=== PATIENT | male | born 1995 | race African-American/Black ===

== ENCOUNTER 2016-12-12 06:09 | Emergency (ER) | payer BC ==
[~2016-12-12] VITALS: Ht 188 cm; Wt 124.0 kg
[2016-12-12 06:13] VITALS: TEMP 37.2; Ht 188 cm; Wt 124.0 kg
[2016-12-12] MEDS ORDERED: AMOXICILLIN/CLAVULANATE TAB 875 MG TAB PO ONE (07:30)
[2016-12-12] MEDS ORDERED: DEXAMETHASONE SOD INJ 10 MG/ML VIAL IM ONE (07:30)
[2016-12-12 07:51] VITALS: BP 158/74; PULSE 99; O2SAT 99
--- NOTE | 2016-12-12 08:52 | EMERGENCY ROOM VISIT NOTE ---
History Report prepared by Prince: Margarita Duran Under the Supervision of: Dr. Eleazar Weems D.O. First contact with patient: 06:53 Chief Complaint: THROAT PAIN/INJURY Stated Complaint: THROAT SWELLING History of Present Illness The patient is a 21 year old male who presents to the Emergency Room with complaints of a persistent swollen throat starting this morning. He woke up this morning to a swollen throat. He has been having flu symptoms for the past week. He had fever and sore throat. He had a strep test 1 week ago which was negative. The swelling began this morning. He had difficulty swallowing. He denies snoring in his sleep. He has not been on antibiotics recently. Source of History: patient Onset: this morning Position: throat Quality: other (swelling) Associated Symptoms: + fevers, + sorethroat Note: Pt reports difficulty swallowing. Review of Systems See HPI for pertinent positives & negatives. A total of 10 systems reviewed and were otherwise negative. Family History No pertinent family history stated. Social History Smoking Status: Never Smoker Marital Status: single Occupation Status: employed Current/Historical Medications No Active Prescriptions or Reported Meds Allergies Coded Allergies: Gemfibrozil (Verified Allergy, Unknown, UNKNOWN, 12/12/16) Physical Exam Vital Signs Date Time Temp Pulse Resp B/P Pulse Ox O2 Delivery O2 Flow Rate FiO2 12/12/16 07:51 99 16 158/74 99 12/12/16 06:36 Room Air 12/12/16 06:13 37.2 107 16 160/86 98 Room Air Physical Exam CONSTITUTIONAL/VITAL SIGNS: Reviewed / noted above. GENERAL: Non-toxic in appearance. INTEGUMENTARY: Warm, dry, and [place]. HEAD: Normocephalic. EYES: without scleral icterus or trauma. ENT/OROPHARYNX: Uvular edema and bilateral peritonsillar edema without exudate or asymmetry. No evidence of abscess. He does have trismus and hot potato voice and is spitting out saliva. LYMPHADENOPATHY/NECK: Is supple without lymphadenopathy or meningismus. RESPIRATORY: Lungs clear and equal. CARDIOVASCULAR: Regular rate and rhythm. GI/ABDOMEN: Soft and nontender. No organomegaly or pulsatile mass. No rebound or guarding. Normal bowel sounds. EXTREMITIES: Warm and well perfused. BACK: No CVA tenderness. NEUROLOGICAL: Intact without focal deficits. PSYCHIATRIC: normal affect. MUSCULOSKELETAL: Normally developed with good muscle tone. Medical Decision & Procedures Medications Administered Medications (Trade) Dose Ordered Sig/Adonay Route Start Time Stop Time Status Last Admin Dose Admin Dexamethasone Sodium Phosphate (Decadron Inj) 10 mg NOW ONCE IM 12/12/16 07:30 12/12/16 07:31 DC 12/12/16 07:50 10 MG Amoxicillin/ Clavulanate Potassium (Augmentin Tab) 875 mg NOW ONCE PO 12/12/16 07:30 12/12/16 07:31 DC 12/12/16 07:50 875 MG ED Course 0713: Previous medical records were reviewed. The patient was evaluated in room B4B. A complete history and physical examination was performed. 0725: I discussed the patient's case with FADY Sandhu ENT from Dr. Krause's office. She agrees to seeing the patient in the office today. 0728: On reevaluation, the patient is resting comfortably. I discussed the results and findings with the patient. He verbalized agreement of the treatment plan. He was discharged home. 0730: Augmentin Tab 875 mg PO, Decadron Inj 10 mg IM. Medical Decision Differential includes viral illness, influenza, streptococcal pharyngitis, meningitis, pneumonia, sinusitis, UTI, pyelonephritis, otitis media. This is a 21-year-old male who presents to the ED with a chief complaint of a sore throat. The patient states that his symptoms started this morning. He has difficulty somewhat with his saliva and spitting it out although he states that he can take pills. The patient states that he has had some flulike illness in the past week and had a negative strep test about a week ago. The patient's exam reveals a hot potato voice as well as some trismus. There is peritonsillar and uvular edema without evidence of obvious abscess. There is no exudate. There is no obvious anterior lymphadenopathy on exam. The patient does spit out his saliva while he is in the ED. He was able to take by mouth Augmentin and was given Decadron IM. Because of his trismus and hot potato voice, this raised the concern for peritonsillar abscess. I spoke with the physician engineer second assistant from Dr. Krause's office. They're office opens in about 25 minutes. I feel the patient is stable to follow-up in the office when they open for further evaluation by them. The patient was discharged to go directly to ENT office for further ENT evaluation there. Consults Time Called: [phone] Consulting Physician: FADY Sandhu ENT Returned Call: [phone] I discussed the patient's case with her. She agrees to seeing the patient in the office today. Impression Primary Impression: Peritonsillar cellulitis Additional Impression: Peritonsillar abscess Scribe Attestation The scribe's documentation has been prepared under my direction and personally reviewed by me in its entirety. I confirm that the note above accurately reflects all work, treatment, procedures, and medical decision making performed by me. Departure Information Dispostion Home / Self-Care Prescriptions No Active Prescriptions or Reported Meds Referrals No Doctor, Assigned (PCP) Darrell Krause, TuO. Forms HOME CARE DOCUMENTATION FORM, IMPORTANT VISIT INFORMATION, WORK / SCHOOL INSTRUCTIONS Patient Instructions My [facility] [address] Additional Instructions Follow-up with Dr. Krause today at 8 am in his office for further evaluation for possible peritonsillar abscess. You were given IM Decaron today and a dose of Augmentin. Problem Qualifiers
== END 2016-12-12 07:52 | disposition home or self-care (01) ==
LOC: C.EDB 06:11
DX: J36 Peritonsillar abscess (principal); R50.9 Fever, unspecified

== ENCOUNTER 2017-06-11 11:38 | Emergency (ER) | payer BC ==
[~2017-06-11] VITALS: Ht 188 cm; Wt 133.0 kg
[2017-06-11 11:41] VITALS: Ht 188 cm; Wt 133.0 kg
[2017-06-11] MEDS ORDERED: DEXAMETHASONE SOD INJ 10 MG/ML VIAL IV STA (11:56)
[2017-06-11] MEDS ORDERED: AMPICILLIN/SULBACTAM SOD INJ 3,000 MG in SODIUM CHLORIDE 0.9% 100ML 100 ML IV STA (11:56)
[2017-06-11] MEDS ORDERED: KETOROLAC TROMETHAMINE 30 MG/ML VIAL IV STA (11:56)
[2017-06-11] MEDS ORDERED: SODIUM CHLORIDE 0.9% 1000ML 1,000 ML IV STA (11:56)
--- NOTE | 2017-06-11 12:03 | EMERGENCY ROOM VISIT NOTE ---
History First contact with patient: 11:45 Chief Complaint: SORETHROAT Stated Complaint: INFLAMMED BACK OF THROAT History of Present Illness The patient is a 21 year old male who presents to the Emergency Room via private vehicle with complaints of "inflamed back throat". Patient states that 4 days ago he began with a sore throat, that is been worsening. He was seen at an urgent care on Friday, and had a rapid strep performed which was negative, and the culture results came back and he was notified and found to be negative. Since then he has developed more pain on the right side of the throat, and now he is trouble swallowing, cannot open his mouth and cannot talk secondary to the pain and swelling. He denies trouble breathing. He was noted to have a fever upon arrival, but denies feeling fevers. He's had a history of peritonsillar abscess of which has had to be drained in the past at [facility]. Review of Systems A complete 10-point Review of Systems was discussed with the patient, with pertinent positives and negatives listed in the History of Present Illness. All remaining Review of Systems questions can be considered negative unless otherwise specified. Past Medical/Surgical History Peritonsillar abscess with drainage Family History No pertinent. Social History Smoking Status: Never Smoker Marital Status: single Occupation Status: employed Patient lives locally Current/Historical Medications No Active Prescriptions or Reported Meds Physical Exam Vital Signs Date Time Temp Pulse Resp B/P (MAP) Pulse Ox O2 Delivery O2 Flow Rate FiO2 06/11/17 13:35 38.0 114 20 133/91 95 06/11/17 12:23 97 Room Air 06/11/17 12:23 113 06/11/17 12:13 Room Air 06/11/17 11:41 38.8 122 20 126/70 97 Room Air Physical Exam VITAL SIGNS - Vital signs and nursing notes were reviewed. Stable. febrile. Tachycardic. GENERAL -21-year-old male appearing his stated age who is in no acute distress. Communicates well with provider and answers questions appropriately. SKIN - Without rashes. HEAD - NC/AT. EYES - PERRL with EOMI bilaterally. Sclera anicteric. No hyphema. EARS - No deformities of external structures noted on gross examination bilaterally. No pain elicited with palpation of the tragus bilaterally. External auditory canals without discharge or otorrhea. Tympanic membranes pearly paredes without retraction or bulging. No fluid or purulent material visualized behind the TM. Handle of malleus, umbo, cone of light, pars tensa/ flaccid all easily visualized. NOSE - Midline and without cyanosis. No epistaxis or purulent drainage noted. Septum midline without deviation or septal hematoma noted. MOUTH/OROPHARYNX - Without perioral cyanosis. Buccal mucosa pink and moist and without leukoplakia. Tongue is midline. There is right sided tonsillar hypertrophy, at 4+. It is touching the uvula. Left is 2+. There is soft palate involvement, with edema. NECK - Neck with FROM. Supple to palpation. There is anterior cervical. Lymphadenopathy noted. No nuchal rigidity. LUNGS - Chest wall symmetric without accessory muscle use, intercostals retractions, or central cyanosis. Normal vesicular breath sounds CTA B/L. No wheezes, rales, or rhonchi appreciated. CARDIAC - RRR with S1/S2. No murmur, rubs, or gallops appreciated. Medical Decision & Procedures Laboratory Results 06/11/17 12:10 Red Blood Count 4.96, Mean Corpuscular Volume 79.4, Mean Corpuscular Hemoglobin 29.4, Mean Corpuscular Hemoglobin Concent 37.1, Mean Platelet Volume 8.7, Neutrophils (%) (Auto) 70.0, Lymphocytes (%) (Auto) 19.0, Monocytes (%) (Auto) 10.7, Eosinophils (%) (Auto) 0.1, Basophils (%) (Auto) 0.1, Neutrophils # (Auto ) 11.34, Lymphocytes # (Auto) 3.07, Monocytes # (Auto) 1.74, Eosinophils # (Auto ) 0.01, Basophils # (Auto) 0.02 06/11/17 12:10 Test 06/11/17 12:10 White Blood Count 16.20 K/uL (4.8-10.8) Red Blood Count 4.96 M/uL (4.7-6.1) Hemoglobin 14.6 g/dL (14.0-18.0) Hematocrit 39.4 % (42-52) Mean Corpuscular Volume 79.4 fL (80-100) Mean Corpuscular Hemoglobin 29.4 pg (25-34) Mean Corpuscular Hemoglobin Concent 37.1 g/dl (32-36) Platelet Count 290 K/uL (130-400) Mean Platelet Volume 8.7 fL (7.4-10.4) Neutrophils (%) (Auto) 70.0 % Lymphocytes (%) (Auto) 19.0 % Monocytes (%) (Auto) 10.7 % Eosinophils (%) (Auto) 0.1 % Basophils (%) (Auto) 0.1 % Neutrophils # (Auto) 11.34 K/uL (1.4-6.5) Lymphocytes # (Auto) 3.07 K/uL (1.2-3.4) Monocytes # (Auto) 1.74 K/uL (0.11-0.59) Eosinophils # (Auto) 0.01 K/uL (0-0.5) Basophils # (Auto) 0.02 K/uL (0-0.2) RDW Standard Deviation 38.8 fL (36.4-46.3) RDW Coefficient of Variation 13.5 % (11.5-14.5) Immature Granulocyte % (Auto) 0.1 % Immature Granulocyte # (Auto) 0.02 K/uL (0.00-0.02) Anion Gap 6.0 mmol/L (3-11) Est Creatinine Clear Calc Drug Dose 138.9 ml/min Estimated GFR () 98.2 Estimated GFR (Non- 84.7 BUN/Creatinine Ratio 10.0 (10-20) Calcium Level 10.0 mg/dl (8.5-10.1) Total Bilirubin 1.5 mg/dl (0.2-1) Aspartate Amino Transf (AST/SGOT) 33 U/L (15-37) Alanine Aminotransferase (ALT/SGPT) 51 U/L (12-78) Alkaline Phosphatase 59 U/L (45-117) Total Protein 8.9 gm/dl (6.4-8.2) Albumin 4.0 gm/dl (3.4-5.0) Globulin 4.9 gm/dl (2.5-4.0) Albumin/Globulin Ratio 0.8 (0.9-2) Medications Administered Medications (Trade) Dose Ordered Sig/Adonay Route Start Time Stop Time Status Last Admin Dose Admin Sodium Chloride 1,000 ml @ 999 mls/hr Q1H1M STAT IV 06/11/17 11:56 06/11/17 12:56 DC 06/11/17 12:11 999 MLS/HR Ketorolac Tromethamine (Toradol Inj) 30 mg NOW STAT IV 06/11/17 11:56 06/11/17 11:59 DC 06/11/17 12:13 30 MG Dexamethasone Sodium Phosphate (Decadron Inj) 10 mg NOW STAT IV 06/11/17 11:56 06/11/17 11:59 DC 06/11/17 12:12 10 MG Ampicillin Sodium/ Sulbactam Sodium 3000 mg/Sodium Chloride 108 ml @ 200 mls/hr NOW STAT IV 06/11/17 11:56 06/11/17 12:28 DC 06/11/17 12:11 200 MLS/HR Acetaminophen 650 mg/Empty Bag 65 ml @ 260 mls/hr NOW STAT IV 06/11/17 12:40 06/11/17 12:54 DC 06/11/17 13:00 260 MLS/HR Medical Decision Patient was seen and evaluated as above. He presents to us today with a sore throat. It has been worsening over the past 4 days. His rapid strep performed on Friday at the urgent care was noted to be negative, with backup culture negative as well. This is by subjective account. He presents to us today febrile at 38.8, tachycardic at 1 22 bpm, as well as experiencing marked trismus , inability to swallow, has to suction his secretions and cannot talk. On exam there is suspected right peritonsillar abscess secondary to the amount of unilaterality, and soft palate involvement. IV access was stat initiated, 1 g of Unasyn, 30 mg of Toradol, 10 mg of Decadron, and 1 L of normal saline was initiated. He was also given 650 mg of acetaminophen. Case was discussed with the attending physician, and subsequently the on-call ENT surgeon, Dr. Krause. It was identified that he had drained the peritonsillar abscess for this individual back in the spring. He verify that I provided the patient with the Toradol, Decadron, fluids and Unasyn. Patient was given a full liter here and his tachycardia began to improve. Tylenol and Toradol for the fever. Dr. Krause requested that I send him to his office for further evaluation and management. The patient appears stable for management at the office. The accompanying friend felt comfortable driving over there. They were given her number in case they had trouble. They were discharged to go directly to his office. There is leukocytosis 16,000. Hemoglobin okay. Metabolic panel reveals bilirubin high 1.5. Total protein at 8.9. He is to follow with [facility] regarding the elevated bilirubin. He has no abdominal pain. No other LFT dysfunction. In evaluation treatment this patient the following differential diagnoses were entertained: Peritonsillar abscess, pharyngitis, strep pharyngitis, among others. Impression Primary Impression: Peritonsillar abscess Additional Impression: Hx of peritonsillar abscess drainage Departure Information Dispostion Home / Self-Care Condition GOOD Prescriptions No Active Prescriptions or Reported Meds Referrals No Doctor, Assigned (PCP) Darrell Krause D.O. Patient Instructions My [facility] Additional Instructions You were seen in the emergency department for your sore throat. I suspect you have a right peritonsillar abscess. Dr. Krause the ENT doctor would like to see was soon as possible in his office. Please drive directly there. Phone number provided. If you have any difficulty please call back here at [phone] and ask for Gilberto. Please let Dr. England know that you received 3 g of Unasyn IV, 10 mg of Decadron IV, 1 L NSS IV, 30 mg of Toradol IV, as well as 650 mg of acetaminophen IV for your pain and fever. Please drive directly there. Problem Qualifiers
[2017-06-11 12:21] LABS: BASO % 0.1 %; BASO ABS # 0.02 K/uL (0-0.2); COMPLETE YES; EOS % 0.1 %; HEMATOCRIT 39.4 % (42-52); IG% 0.1 %; LYMPH ABS # 3.07 K/uL (1.2-3.4); MEAN CELL VOLUME 79.4 fL (80-100); MEAN CORPUSCULAR HEMOGLOBIN 29.4 pg (25-34); MEAN CORPUSCULAR HGB CONC 37.1 g/dl (32-36); MEAN PLATELET VOLUME 8.7 fL (7.4-10.4); MONO % 10.7 %; PLATELET COUNT 290 K/uL (130-400); RED BLOOD COUNT 4.96 M/uL (4.7-6.1)
[2017-06-11] MEDS ORDERED: ACETAMINOPHEN IV 650 MG in EMPTY BAG 0 ML IV STA (12:40)
[2017-06-11 12:52] LABS: ALB/GLOB RATIO 0.8 (0.9-2); CREATININE 1.2 mg/dl (0.60-1.40); POTASSIUM 4.1 mmol/L (3.5-5.1)
[2017-06-11 13:35] VITALS: BP 133/91; PULSE 114; TEMP 38; O2SAT 95
== END 2017-06-11 13:37 | disposition home or self-care (01) ==
LOC: C.EDB 11:39 → C.EDC 13:37
DX: J36 Peritonsillar abscess (principal)